=== PATIENT | female | born 1985 | race Caucasian/White ===

== ENCOUNTER 2023-08-13 20:07 | Outpatient (REF) | payer OTHER, SELFPAY ==
[2023-08-17 17:11] LABS: Age Gdln ACOG Testing Note (.); HPV Aptima Negative (Negative); IGP, Aptima HPV, rfx 16/18,45 Note (.)
== END 2023-08-13 20:08 | disposition home or self-care (01) ==
LOC: LAB 20:07
PROVIDERS: PCP Family Medicine; Visit Provider Obstetrics & Gynecology
DX: Z01.419 Encounter for gynecological examination (general) (routine) without abnormal findings (principal)
CPT/HCPCS: 87624; G0145

== ENCOUNTER 2025-04-14 15:14 | Outpatient (REF) | payer OTHER, SELFPAY ==
--- OUTSIDE RECORDS SUMMARY | 2025-03-31 20:58 | XMS_ITS | Continuity of Care Document ---
Author Organization [facility] Address [address] [place] [address] Phone Care Team Providers Care Patient Admitting Representative Name Role Phone NO FAMILY, PHYSICIAN Primary Care Provider Unava ilable Leonela Eason APRN Attending Provider NON STAFF Primary Care Provider Perla Tuttle PA-C Attending Provider [phone] Care Teams Patient Care Team Team Status: Active Member Role Status Dates NON STAFF Primary Care Provider Active Visit Care Team Team Status: Inactive Member Role Status Dates PHYSICIAN NO FAMILY Primary Care Provider Active Start: January 27, 2025 End: January 27, 2025 Leonela Eason APRN Attending Provider Active Start: January 27, 2025 End: January 27, 2025 Visit Care Team Team Status: Inactive Member Role Status Dates Leonela Easno APRN Attending Provider Active Start: January 27, 2025 End: January 27, 2025 NON STAFF Primary Care Provider Active Start: January 27, 2025 End: January 27, 2025 Visit Care Team Team Status: Inactive Member Role Status Dates NON STAFF Primary Care Provider Active Start: March 31, 2025 End: March 31, 2025 Perla Fisher PA-C Attending Provider Active St art: March 31, 2025 End: March 31, 2025 Visit Care Team Team Status: Inactive Member Role Status Dates NON STAFF Primary Care Provider Active Start: March 31, 2025 End: March 31, 2025 Perla Fisher PA-C Attending Provider Active St art: March 31, 2025 End: March 31, 2025 Chief Complaint and Reason for Visit Chief Complaint Admit Date Frequency to urinate January 27, 2025 5: 56pm R30.0 January 27, 2025 5:5 9pm RIGHT FOOT PAIN March 31, 2025 11:46 am S99.921A March 31, 2025 11:59 am Reason for Visit Admit Date UTI (urinary tract infection) December 5:56pm Right foot injury March 31, 2025 11:46 am Right foot strain March 31, 2025 11:46 am Allergies, Adverse Reactions, Alerts Allergen Type Severity Reaction Last Updated Verified Status nickel Adverse Reaction Unknown Rash March 31, 2025 11:51am Yes Active Social History Smoking Status Status Start Date End Date Date of Observa tion Never smoked tobacco (finding) May 01, 2023 1:52pm Observation Status Observation Response Date of Response Legal Sex Female (finding) Sex Assigned At Female 1985 Family History Relationship Condition Age at Onset Recorded Date/T giovanna mother Hypercholesterolemia Unknown father Diabetes mellitus Unknown aunt Hyperthyroidism Unknown father Diabetes mellitus Unknown grandparent Hyperthyroidism Unknown grandparent Thyroid nodule Unknown mother Hypertension Unknown Problems Active Problems Medical Problem Onset Date Status UTI (urinary tract infection) Unknown Ac tive Dyspepsia and disorder of function of stomach Un known Active Shortness of breath Unknown Active Cough Unknown Active Diarrhea Unknown Active GERD (gastroesophageal reflux disease) Unknown Active Abdominal pain Unknown Active Pneumonia Unknown Active Right foot injury Unknown Active Right foot strain Unknown Active Medications Medication Status Dose Units Route Directions Qty Days St art Date Stop Date End Date Instructions Adherence Dicyclomine 20 mg tablet Discont inued 1 TAB PO Daily December 03, 2017 1:00am 2022 10:04 am Pantoprazol e 40 mg tablet,marcelino yed release (DR/EC) Discont inued 1 TAB PO Daily December 03, 2017 1:00am 2022 10:04 am Fluticasone Propionate (Flonase Allergy Relief) 50 mcg/actuati on [place] Discont inued 1 SPRAY INTRAN ELVA Daily December 03, 2017 1:00am 2022 10:04 am Ondansetron 4 mg tablet,disi ntegrating Discont inued MG PO 2024 1:00am December 29, 2024 6:54p m Vortioxetin e (Trintellix ) 20 mg tablet Discont inued MG PO 2024 1:00am January 27, 2025 6:00p m Lamotrigine 100 mg tablet Discont inued MG PO 2024 1:00am December 29, 2024 6:53p m Azithromyci n 250 mg tablet Discont inued 0 PO .COMPLEX 6 2024 1:00am December 29, 2024 6:53p m For 250 mg dose pack: take 500 mg today (day 1), then 250 mg for 4 days (days 2-5) PO Albuterol Sulfate 90 mcg/actuati on HFA aerosol inhaler Discont inued 2 INH INHALA TION EVERY 4-6 HOURS as needed for shortness of breath or wheezing 6.7 7 2024 1:00am March 31, 2025 11:52 am Methylpredn isolone (Medrol (Parrish)) 4 mg tablets,dos e pack Discont inued 0 PO per package directions 21 2024 1:00am December 29, 2024 6:53p m PO PER PKG DIR Cefdinir 300 mg capsule Discont inued 300 MG PO Every 12 hours 20 10 2024 1:00am December 29, 2024 6:53p m Cephalexin 500 mg capsule Discont inued 500 MG PO Twice daily 14 7 2024 1:00am December 29, 2024 6:53p m Lamotrigine 150 mg tablet Discont inued 150 MG PO Daily December 29, 2024 12:00a m March 31, 2025 11:52 am Ciprofloxac in Hcl 500 mg tablet Discont inued 500 MG PO Twice daily 10 5 December 29, 2024 12:00a m January 27, 2025 6:00p m Prednisone 20 mg tablet Active 20 MG PO Twice daily 10 5 March 31, 2025 12:00a m Unknown Vortioxetin e (Trintellix ) 10 mg tablet Active MG PO January 27, 2025 12:00a m Unknown Cephalexin 500 mg capsule Discont inued 500 MG PO Three times daily 21 7 January 27, 2025 12:00a m March 31, 2025 11:52 am Procedures Procedure Date Performed Status Urine Culture January 27, 2025 completed XR foot RT min 3V* March 31, 2025 12:03pm comple hung Relevant Diagnostic Tests and/or Laboratory Data Laboratory Results Test Collection Date/Time Result Date/Time Result Interpretation Reference Range Result Comment Performing Site Urine Color January 27, 2025 6:07pm January 27, 2025 6:16pm yellow Urine Appearance January 27, 2025 6:07pm January 27, 2025 6:16pm cloudy Urine Specific [place] January 27, 2025 6:07pm January 27, 2025 6:16pm 1.025 Urine pH January 27, 2025 6:07pm January 27, 2025 6:16pm 7.0 Urine Leukocyte Esterase January 27, 2025 6:07pm January 27, 2025 6:16pm large Urine Nitrite January 27, 2025 6:07pm January 27, 2025 6:16pm Negative Urine Protein January 27, 2025 6:07pm January 27, 2025 6:16pm 100 Urine Glucose (UA) January 27, 2025 6:07pm January 27, 2025 6:16pm negative Urine Ketones January 27, 2025 6:07pm January 27, 2025 6:16pm negative Urine Urobilinoge n January 27, 2025 6:07pm January 27, 2025 6:16pm 0.2 Urine Bilirubin January 27, 2025 6:07pm January 27, 2025 6:16pm negative Urine Occult Blood January 27, 2025 6:07pm January 27, 2025 6:16pm small Microbiology Results Procedure Source Result Collection Date/Time Result Date/Time Result Comment Performing Site Urine Culture Urine Escherichia coli January 27, 2025 5:59pm January 29, 2025 8:27am [facility] [id number] [address] [place] [address] Diagnostic Imaging Reports Author Ji Snow [facility] Report Date/Time March 31, 2025 1:31p m [facility] Main [address] [address] XRay Report Signed Patient: Sahara Thao MR#: [id number] : 1985 Acct:[id number] Age/Sex: 40 / F ADM Date: 5 Loc: [id number] Room: Type: [facility] Attending Dr: Perla Fisher PA-C Copies to: ALIYAH Velasco~ Ordering Provider: ALIYAH Velasco Date of Service: 03/31/25 XR/XR foot RT min 3V*: S99.921A - Unspecified injury of right foot, initial enco... RIGHT FOOT - 3 views CLINICAL HISTORY: Fall 1 month ago. Now with pain. COMPARISON: None FINDINGS: Soft tissue swelling. No acute bony process. Joint spaces appear maintained. No bony erosions. XR/XR foot RT min 3V* IMPRESSION: SOFT TISSUE SWELLING. NO ACUTE BONY PROCESS. Impression dictated by: Ji Snow Jr., D.O. 03/31/2025 1:31 PM Dictation Location: [place] [address] Transcribed By: [facility] 03/31/25 1331 Dictated By: Ji Snow Jr, DO 03/31/25 1230 Signed By: <Electronically signed by Ji Snow Jr, DO in OV> 03/31/25 1331 Vital Signs Vital Reading Result Reference Range Collection Date/Time Height 64 [in_i] January 27 6:02pm Weight 101.60 kg January 27 6:02pm Body Temperature 98 [degF] 97.6-99.0 January 27, 2025 6:02pm Heart Rate 87 /min 60-100 January 27 6:02pm Respiratory rate 18 /min 12-24 January 27, 2025 6:02pm Oxygen saturation by Pulse oximetry 98 % 95-100 January 27, 2025 6:0 2pm BP Systolic 111 mm[Hg] 100-140 January 27 6:02pm BP Diastolic 75 mm[Hg] 60-100 January 27 6:02pm BMI (Body Mass Index) 38.4 kg/m2 January 27, 2025 6:02pm Height 64 [in_i] March 31, 2025 11:52am Weight 104.32 kg March 31, 2025 11:52am Body Temperature 97.7 [degF] 97.6-99.0 March 31 11:52am Heart Rate 85 /min 60-100 March 31, 2025 11:52am Respiratory rate 16 /min 12-March 31 11:52am Oxygen saturation by Pulse oximetry 98 % 95-100 March 31, 2025 11:52 am BP Systolic 112 mm[Hg] 100-140 March 31, 2025 11:52am BP Diastolic 78 mm[Hg] 60-100 March 31, 2025 11:52am BMI (Body Mass Index) 39.4 kg/m2 March 312024 11:52am Advance Directives Advance Directive Response Recorded Date/ Time Advance Directives No October 12, 2017 12:53pm Insurance Providers Guarantor Sahara Thao Address [address] [place] [id number] Contact Info. Home Phone: Payer Policy Id Subscriber's Name Subscriber Id Effe ctive Date Expiration Date [facility] [id number] Sahara Thao [id number] [facility] [id number] Ji Thao [id number] Encounters Encounter Location(s) Arrival/Admit Date Discharge/Depart Date Provider(s) Departed Physician/Prov ider Office Visit -[facility] [place] January 27, 2025 5:56pm January 27, 2025 6:27pm Zuleyma Mike APRN Departed Referred -Lab [facility] January 27, 2025 5:59pm January 27, 2025 6:00pm Zuleyma Mike APRN Departed Physician/Prov ider Office Visit -[facility] [place] March 31, 2025 11:46am March 31, 2025 1:46pm ALIYAH Velasco Departed Clinical -[facility] March 31, 2025 11:59am March 31, 2025 12:00pm ALIYAH Velasco Recent Diagnosis Onset Date Admit Date UTI (urinary tract infection) Unknown Ap 2024 5:56pm Right foot injury Unknown March 31, 2025 11:46am Right foot strain Unknown March 31, 2025 11:46am Assessments Diagnosis Onset Date Resolution Status Admit Date UTI (urinary tract infection) acute January 27, 2025 5:56pm Right foot injury acute March 11:46am Right foot strain acute March 11:46am Plan of Treatment Author Perla Fisher [facility] Authored March 31, 2025 1:47p m Rx steroid as directed for p ain. No nsaids while on steroid. Otc tylenol is ok to take prn for additional pain relief. Ice and heat alternating as directed. RICE therapy. Pt declined walking boot or crutches. No heavy lifting or strenuous exercise. Stretching exercises as discussed. Pt to f/u as needed for any persistent or worsening symptoms. Pt understood and agreed to treatment plan. FINAL READ shows no acute bony abnormality. Soft tissue swelling noted. Results were reviewed and discussed with pt in office at time of visit and they verbally understood these findings. Author Leonela Eason [facility] Authored January 27, 2025 6:4 2pm Last UTI culture positive fo r greater than 100,000 E. coli, was sensitive to all antibiotics other than Bactrim. Last UTI was about 1 month ago and was on Cipro. UA with large leukocytes, small blood. Will treat with keflex. Push fluids. We will culture urine and notify of results in 2 to 4 days. Advised to follow-up with PCP if symptoms or not gradually improving over the next 3 to 4 days. Patient verbalized understanding of treatment plan. Future Tests Future scheduled test information is unavailable Pending Tests Pending diagnostic test information is unavailable Future Visits Future appointment information is unavailable Referrals to Other Providers Referral information is unavailable Future Procedures Future procedure information is unavailable Future Medications Future medication information is unavailable Patient Instructions Patient instructions are unavailable
--- OUTSIDE RECORDS SUMMARY | 2025-04-14 15:18 | XMS_ITS | Clinical Summary ---
Author Organization [facility] Address [address] [place] [address] Care Team Providers Care Drawer In Hand Name Role Phone Jabier Vicente Allergies Active Allergy Reactions Criticality Noted Date Comments Nickel Rash 05/19/2021 sensitivity Medications bupropion HCl (WELLBUTRIN SR ORAL) Take 300 mg by mouth. Active letrozole (FEMARA) 2.5 mg tablet Take 2 tablets by mouth as directed for 5 days. Start on cycle day 3 (where cycle day 1 is the first day of full flow). Continue until day 7 10 tablet 5 06/30/2021 Active Social History Tobacco Use Types Packs/Day Years Used Date Smoking Tobacco: Never Smokeless Tobacco: Never Alcohol Use Standard Drinks/Week Comments Yes 0 (1 standard drink = 0.6 oz pur e alcohol) socially Area Deprivation Index Answer Date Naveed rded National Score (1-100), lower number is lower ri sk Not on file 05/19/2021 State Score (1-10), lower number is lower risk N ot on file 05/19/2021 Data from: https://www.neighborhoodatlas.medicine.[facility].edu/. Last address used for calculation Not on file 05/19/2021 Comments No Sex and Gender Information Value Date Recorded Sex Assigned at Female 06/15/2021 6:08 AM EDT Legal Sex Female 11:07 AM EDT Gender Identity Female 06/15/2021 6:08 AM EDT Sexual Orientation Straight 06/15/2021 6: 08 AM EDT Last Filed Vital Signs Vital Sign Reading Time Taken Comments Blood Pressure 117/78 06/15/2021 8:22 AM EDT Pulse 81 06/15/2021 8:22 AM EDT Temperature - - Respiratory Rate - - Oxygen Saturation 99% 06/15/2021 8:22 AM EDT Inhaled Oxygen Concentration - - Weight 93.9 kg (207 lb) 06/30/2021 10:35 AM EDT Height 162.6 cm (5' 4 ) 06/30/2021 10:35 AM EDT Body Mass Index 35.53 06/30/2021 10:35 AM EDT Plan of Treatment Health Maintenance Due Date Last Done Comments DTaP,Tdap,Td Vaccine (6 - Tdap) 02/05/1998 02/04/1998, 04/15/1991, 09/13/1987, Additional history exists Anxiety Screening 2004 Depression Screening 2004 HIV Screening 2004 Hepatitis C Screening 2004 Cervical Cancer Screening 2007 Covid-19 Vaccine (2023-2 5 season) 2024 Influenza Vaccine (#1) 2025 Hepatitis B Vaccine Completed 05/13/2004, 11/20/2003, 07/30/[address] [place] [address] PPO [employer]UST Care Teams Drawer In Hand Relationship Specialty Start Date End Date Jabier Vicente [address] [facility] [place] [phone] Referring Toolroom Helper 04/01/21
--- OUTSIDE RECORDS SUMMARY | 2025-04-14 15:18 | XMS_ITS | Encounter Summary ---
Author Organization [facility] Address [address] [place] [address] Care Team Providers Care Durable Medical Equipment Technician Name Role Phone Jabier [phone] Source Comments In the event this information is protected by the Federal Confidentiality of Alcohol and Drug AbusePatient Records regulations: The Federal rules restrict any use of the information to criminally investigate or prosecute any alcohol or drug abuse patient.[facility] Encounter Details Date Type Department Care Team (Late st Contact Info) Description 11/17/2021 Get Medical Advice Reproductive Endocrinology Infertility [address] [phone] Nico Martínez MD question Social History Tobacco Use Types Packs/Day Years [...] N ot on file 05/19/2021 Data from: https://www.neighborhoodatlas.medicine.[facility].edu/. Last address used for calculation Not on file 05/19/2021 Comments No Sex and Gender Information Value Date Recorded Sex Assigned at Female 06/15/2021 6:08 AM EDT Legal Sex Female 11:07 AM EDT Gender Identity Female 06/15/2021 6:08 AM EDT Sexual Orientation Straight 06/15/2021 6: 08 AM EDT documented as of this encounter Plan of Treatment Not on file documented as of this encounter Visit Diagnoses Not on filedocumented in this encounter Care Teams Durable Medical Equipment Technician Relationship Specialty Start Date End Date Jabier Vicente [address] [place] [address] Referring Machine Maintenance Servicer 04/01/21 documented as of this encounter
--- OUTSIDE RECORDS SUMMARY | 2025-04-14 15:18 | XMS_ITS | Patient Health Record ---
Author Organization [facility] Address [address] [place] [address] Care Team Providers Care Shift Mechanic Name Role Phone Emilia Tavares Primary Care Provider Glennaalmita dariana alvina Karla Unavailable Allergies No Known Allergies Results Component Value Reference Range Notes Urinalysis (IH) Reviewed date:07/05/2024 03:30:28 PM Interpretation:Abnormal Performing Lab: Notes/Report: Abnormal Blood Non-Hemolyzed 10 negative - ca. 250 Er y/ml Urobili norm normal - 12 mg/dL Bili neg negative - large Protein 30 negative - 500 mg/dL Nitrites neg negative - positive Ketone neg negative - large mg/dL Ascorbic Acid ++ trace - large Glucose neg negative - > 1000 mg/dL pH 7 5.0 - 9.0 Spec. Gr. 1.010 1.000 - 1.030 LEUK 500 negative - ca. 500 Darrion/ml Reason For Referral No Information Medications Medication SIG (Take, Route, Frequency, Duration) Notes Start Date End Date Status hydrOXYzine Pamoate 25 MG TAKE 1 CAPSULE (25 MG) BY MOUTH EVERY 8 (EIGHT) HOURS IF NEEDED FOR ANXIETY Oral for 10 Days Active lamoTRIgine 100 MG Oral for 90 Days Active Trintellix 20 MG Oral for 30 Days Active Social History Tobacco Use: Social History Observation Description Date Details (start date - stop date) Never Smoker NA - NA Tobacco Control (Standard) Question Answer Notes Tobacco use: Nonsmoker Problems Problem Type SNOMED Code ICD Code Onset Dates Problem Status W/U Status Risk Notes Problem Anxiety (65931903) Anxiety (F41.9) Active confirmed Problem Depression (557165168) Depression (F32.9) Active confirmed Problem 403675241 Obesity (BMI 30-39.9) (E66.9) Active confirmed Vital Signs Temperature 98.4 degrees Fahrenheit 07/05/2024 Respiratory Rate 16 /min 07/05/2024 Blood pressure diastolic 78 mm Hg 07/05/2024 Height 64 in 07/05/2024 Blood pressure systolic 120 mm Hg 07/05/2024 Weight 221 lbs 07/05/2024 BMI 37.93 kg/m2 07/05/2024 Encounters Encounter Location Date Provider Diagnosis [id number] [facility] [address] [place] [address] 07/05/2024 Karla Courtneyalvina Acute cystitis with hematuria N30.01 and Obesity (BMI 30-39.9) E66.9 Assessments Encounter Date Diagnosis (ICD Code) Assessment Notes Treatment Notes Treatment Clinical Notes Section Notes 07/05/2024 Obesity (BMI 30-39.9) (ICD-10 - E66.9) Continue healthy eating and exercise. [facility] via a telehealth visit at [email or web address] to help with dietary changes to lower BMI. 07/05/2024 Acute cystitis with hematuria (ICD-10 - N30.01) Urinary Tract Infection (UTI) in Women: Care Instructions material was published, Female Urinary Tract: Anatomy Sketch material was published, Diet for a Healthy Bladder: Care Instructions material was published Follow up in the clinic or with PCP in 2-3 days if no improvement or worsening of symptoms and will send for culture as [facility] is not picking up this weekend 07/05/2024 Other Sulfamethoxazol e/Tr imethoprim Oral Tablet (SULFAMETHOXAZOLE/T RIMETHOPRIM- ORAL) material was published, Phenazopyridine Oral Tablet (PHENAZOPYRIDINE - ORAL) material was published Plan Of Treatment No Information Insurance Providers Payer Name Payer Address Payer Phone Subscriber Number Group Number Insured Name Patient Relationship to Insured Coverage Start Date Coverage End Date [facility] [address] [place] [phone] [id number] Sahara Rene Self - patient is the insured [employer] [address] [place] [phone] Sahara Rene Self - patient is the insured Medical (General) History Medical History History ICD Code Depression F32.9 Anxiety F41.9 Surgical History Surgery Date(Month/Year) colonoscopy Hospitalization History Reason Date(Month/Year) childbirth dehydration, tachycardia 2022
--- OUTSIDE RECORDS SUMMARY | 2025-04-14 15:18 | XMS_ITS | Encounter Summary ---
Author Organization [facility] Address [address] [place] [address] Care Team Providers Care Operater Name Role Phone Jabier [phone] Source Comments In the event this information is protected by the Federal Confidentiality of Alcohol and Drug AbusePatient Records regulations: The Federal rules restrict any use of the information to criminally investigate or prosecute any alcohol or drug abuse patient.[facility] Encounter Details Date Type Department Care Team (Latest Contact Info) Description 11/03/2021 Get Medical Advice Reproductive Endocrinology Infertility [address] [phone] Nico Martínez MD test positive! Social History Tobacco Use Types Packs/Day Years [...] N ot on file 05/19/2021 Data from: https://www.neighborhoodatlas.medicine.[facility].edu/. Last address used for calculation Not on file 05/19/2021 Comments No Sex and Gender Information Value Date Recorded Sex Assigned at Female 06/15/2021 6:08 AM EDT Legal Sex Female 11:07 AM EDT Gender Identity Female 06/15/2021 6:08 AM EDT Sexual Orientation Straight 06/15/2021 6: 08 AM EDT documented as of this encounter Miscellaneous Notes * Telephone Encounter - Alondra Rodriguez RN - 11/03/2021 11:09 AM EST See phone encounter Alondra Rodriguez RN November 03, 2021 11:09 AM documented in this encounter Plan of Treatment Not on file documented as of this encounter Visit Diagnoses Not on filedocumented in this encounter Care Teams Operater Relationship Specialty Start Date End Date Jabier Vicente [address] [place] [address] Referring Traffic Control Signaler 04/01/21 documented as of this encounter
--- OUTSIDE RECORDS SUMMARY | 2025-04-14 15:18 | XMS_ITS | Encounter Summary ---
Author Organization [facility] Address [address] [place] [address] Care Team Providers Care Supervisor Molding Name Role Phone Jabier Vicente Source Comments In the event this information is protected by the Federal Confidentiality of Alcohol and Drug AbusePatient Records regulations: The Federal rules restrict any use of the information to criminally investigate or prosecute any alcohol or drug abuse patient.[facility] Encounter Details Date Type Department Care Team (Late st Contact Info) Description 11/03/2021 Patient Msg Reproductive Endocrinology Infertility [id number] [place] [address] Leonela Rice APRN.DRILL PRESS OPERATOR HELPER [phone] [place] [address] Next steps Social History Tobacco Use Types Packs/Day Years [...] N ot on file 05/19/2021 Data from: https://www.neighborhoodatlas.medicine.[facility].edu/. Last address used for calculation Not on [...] on filedocumented in this encounter Care Teams Supervisor Molding Relationship Specialty Start Date End Date Jabier Vicente [address] [place] [address] Referring Dental Technician 04/01/21 documented as of this encounter
--- OUTSIDE RECORDS SUMMARY | 2025-04-14 15:18 | XMS_ITS | Encounter Summary ---
Author Organization [facility] Address [address] [place] [address] Care Team Providers Care Quality Control Microbiologist Name Role Phone Jabier [phone] Source Comments In the event this information is protected by the Federal Confidentiality of Alcohol and Drug AbusePatient Records regulations: The Federal rules restrict any use of the information to criminally investigate or prosecute any alcohol or drug abuse patient.[facility] Encounter Details Date Type Department Care Team (Latest Contact Info) Description 11/09/2021 Get Medical Advice Reproductive Endocrinology Infertility [address] [phone] Nico Martínez MD Have you received test results Social History Tobacco Use Types Packs/Day Years [...] N ot on file 05/19/2021 Data from: https://www.neighborhoodatlas.medicine.[facility].edu/. Last address used for calculation Not on file 05/19/2021 Comments No Sex and Gender Information Value Date Recorded Sex Assigned at Female 06/15/2021 6:08 AM EDT Legal Sex Female 11:07 AM EDT Gender Identity Female 06/15/2021 6:08 AM EDT Sexual Orientation Straight 06/15/2021 6: 08 AM EDT documented as of this encounter Miscellaneous Notes * Telephone Encounter - Alondra Rodriguez RN - 11/09/2021 4:43 PM EST See phone encounter Alondra Rodriguez RN November 09, 2021 4:43 PM documented in this encounter Plan of Treatment Not on file documented as of this encounter Visit Diagnoses Not on filedocumented in this encounter Care Teams Quality Control Microbiologist Relationship Specialty Start Date End Date Jabier Vicente [address] [place] [address] Referring Supervisor Rubber Covering 04/01/21 documented as of this encounter
--- OUTSIDE RECORDS SUMMARY | 2025-04-14 15:18 | XMS_ITS | Clinical Summary ---
Author Organization [employer] [facility] Address [id number] [place] [address] Care Team Providers Care Security System Administrator Name Role Phone Anusha Emilia Zuleyma ROOT Primary Care Provider [phone] Allergies Active Allergy Reactions Criticality Noted Date Comments Nickel 01/24/2022 Medications ondansetron ODT (ZOFRAN ODT) 4 mg disintegrating tablet Dissolve 1 tablet (4 mg total) on tongue every 8 (eight) hours as needed for nausea or vomiting. 20 tablet 10/02/19 Active Additional Information Patient not taking.Reported on 01/22/2025 TRINTELLIX 10 mg tablet Take 1 tablet (10 mg total) by mouth. 12/19/19 Active lamoTRIgine (LaMICtal) 150 mg tablet Take 1 tablet (150 mg total) by mouth in the morning. 12/16/19 25 Active Active Problems Problem Noted Date Diagnosed Date Stress incontinence of urine 01/22/2025 Overview (01/22/2025): ====01/22/25====Stress incontinence and occasional incontinence without sensation. Kegels ineffective. PVR 0. Recent CT report mentioned pelvic floor weakness. We discussed cystoscopy/urodynamics. We will start with cystoscopy first Assessment & Plan (01/22/2025 1:31 PM EDT): Due to her recurrent infections, we will start by checking a cystoscopy 1st. We discussed that urodynamics may be needed as well. Recurrent UTI 01/22/2025 Overview (01/22/2025): ====01/22/25==== recurrent UTI symptoms over the past year. Recent CT showed that the kidneys were unremarkable. She agrees to cystoscopy/ [facility] instillation. She will look in to cranberry/ D mannose supplements. We discussed postcoital antibiotics. She will let me know if interested Assessment & Plan (01/22/2025 1:32 PM EDT): I explained cystoscopy to her in detail. She agrees to proceed under local anesthesia. Nausea, vomiting, and diarrhea 10/02/2024 MCI (mild cognitive impairment) 10/02/2024 Overview (10/02/2024): Symptoms of Loss of Train of thought, difficulty with word finding reviewed with patient and reassurance given. Reviewed possible etiologies, including but not limited to medications, medical diseases, allergens, neurological causes. Recommend referral to Neurology for evaluation and management. All of patient's questions were answered and she expressed understanding. will continue to follow. 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 Memory loss 03/15/2023 Persistent depressive disorder 03/15/2023 Encounters Date Type Department Care Team Description 01/22/2025 1:00 PM EDT Office Visit [facility] [address] [place] [address] Tonya Vickers I, PA Stress incontinence of urine (Primary Dx); Recurrent UTI 01/22/2025 Telephone [facility] [address] [place] [address] Tonya Vickers PA from Last 3 Months Family History Medical History Relation Name Comments Diabetes Father Type 2 Heart disease Maternal Grandfather Stroke Maternal Grandfather Arthritis Maternal Grandmother Diabetes Maternal Grandmother Goiter Maternal Grandmother Heart disease Maternal Grandmother Hypothyroidism Maternal Grandmother Anemia Mother Hyperlipidemia Mother Alzheimer's disease Paternal Grandfather Heart disease Paternal Grandfather Stroke Paternal Grandfather Diabetes Paternal Grandmother Heart disease Paternal Grandmother Hyperlipidemia Paternal Grandmother Hypertension Paternal Grandmother Hypothyroidism Paternal Grandmother Miscarriages / Stillbirths Paternal Grandmother Parkinsonism Paternal Grandmother Relation Name Status Comments Father Maternal Grandfather Maternal Grandmother Mother Paternal Grandfather Paternal Grandmother Social History Tobacco Use Types Packs/Day Years Used Date Smoking Tobacco: Never Smokeless Tobacco: Never Tobacco Cessation:Counseling Given: Not Answered Alcohol Use Standard Drinks/Week Comments Yes 0 (1 standard drink = 0.6 oz pure alcohol) states they very rarely drink alcohol [facility] Utilities Answer Date Recorded In the past 12 months has [employer], gas, oil, or water [employer] threatened to shut off services in your home? No 10/02/2024 Social Connection and Isolat ion Panel [NHANES] Answer Date Recorded In a typical week, how many times do you talk on the phone with family, friends, or neighbors? More than three times a week 10/02/2024 How often do you get togethe r with friends or relatives? More than three times a week 10/02/2024 How often do you attend chur or hindu services? 1 to 4 times per year 10/02/2024 Do you belong to any clubs o r organizations such as orthodoxy groups, unions, fraternal or athletic groups, or school groups? No 10/02/2024 How often do you attend meet ings of the clubs or organizations you belong to? Never 10/02/2024 Are you , , di vorced, , never , or living with a partner? 10/02/2024 AUDIT-C Answer Date Recorded Q1: How often do you have a drink containing alcohol? Never 10/02/2024 Q2: How many drinks containi ng alcohol do you have on a typical day when you are drinking? Patient does not drink Q3: How often do you have si x or more drinks on one occasion? Never 10/02/2024 Overall Financial Resource Strain (CARDIA) Answe r Date Recorded How hard is it for you to pa y for the very basics like food, housing, medical care, and heating? Not hard at all 10/02/2024 PHQ-2 Answer Date Recorded Total Score 0 10/02/2024 Exercise Vital Sign Answer Date Recorde d On average, how many days pe r week do you engage in moderate to strenuous exercise (like a brisk walk)? 1 day 10/02/2024 On average, how many minutes do you engage in exercise at this level? 30 min 10/02/2024 PRAPARE - Transportation Answer Date Re corded In the past 12 months, has l ack of transportation kept you from medical appointments or from getting medications? No 11/2024 In the past 12 months, has l ack of transportation kept you from meetings, work, or from getting things needed for daily living? No 10/02/2024 Housing Instability Answer Date Recorde d Are you worried or concerned that in the next two months you may not have stable housing that you own, rent or stay in as a part of a household? No 10/02/2024 Childcare Answer Date Recorded Do problems getting child ca re make it difficult for you to work or study? No 10/02/2024 Employment Answer Date Recorded Do you need help finding a [facility] career center and/or a training program? No 10/02/2024 Hunger Screening Answer Date Recorded Within the past 12 months we worried whether our food would run out before we got money to buy more. Never True 01/22/2025 Within the past 12 months th e food we bought just didn't last and we didn't have money to get more. Never True 01/22/2025 Purpose - Life Answer Date Recorded I have a purpose and direction in my life. Stron gly Agree 10/02/2024 Comments No Sex and Gender Information Value Date Recorded Sex Assigned at Not on file Legal Sex Female 12:06 PM EDT Gender Identity Not on file Sexual Orientation Not on file Last Filed Vital Signs Vital Sign Reading Time Taken Comments Blood Pressure 137/89 01/22/2025 12:45 PM EDT Pulse 98 01/22/2025 12:45 PM EDT Temperature 36.8 C (98.2 F) 10/02/2024 11:56 AM EST Respiratory Rate 17 10/02/2024 1:29 PM EST Oxygen Saturation 93% 10/02/2024 3:44 PM EST Inhaled Oxygen Concentration - - Weight 101.6 kg (224 lb) 01/22/2025 12:45 PM EDT Height 162.6 cm (5' 4 ) 01/22/2025 12:45 PM EDT Body Mass Index 38.45 01/22/2025 12:45 PM EDT Plan of Treatment Upcoming Encounters Date Type Department Care Team (Latest Contact Info) Description 05/08/2025 4:10 PM EDT Support Visit [facility] - Pre Admit [address] [place] [address] 05/11/2025 10:00 AM EDT Hospital Encounter [facility] - Surgery [address] [place] [address] Delfino Schmid MD [address] [place] [address] 05/11/2025 10:00 AM EDT - 05/11/2025 10:30 AM EDT Surgery [facility] - Surgery [address] [place] [address] Delfino Schmid MD [address] [place] [address] CYSTOSCOPY WITH [facility] BLADDER SOLUTIO [13751 (CPT )] Scheduled Procedures Name Priority Associated Diagnoses Date/Ti me CYSTOSCOPY Recurrent UTI Stress incontinence of urine 05/11/2025 10:00 AM EDT Health Maintenance Due Date Last Done Comments DTaP,Tdap and Td Vaccines (6 - Tdap) 02/05/1998 02/04/1998, 04/15/1991, 09/13/1987, Additional history exists Adult BMI Follow Up Plan 2004 Pap Smear 2007 Influenza Vaccine 06/01/2025 Depression Screening 10/02/2025 10/02/2024 Adult BMI Screening 01/22/2026 01/22/2025 Tobacco Screening 01/22/2026 01/22/2025 Goals Goal Patient Goal Type Associated Problems Recent Progress Patient-Stated? Author Autogenera hung Goal Care Plan Autogenerated Problem No Smiley, [employer] Not on file Procedures Procedure Name Priority Date/Time Associated Diagnosis Comments MEASURE POST VOID RESIDUAL Routine 01/22/2025 12:57 PM EDT Stress incontinence of urine POCT URINALYSIS AUTO, W/O MICROSCOPY Routine 01/22/2025 12:56 PM EDT Stress incontinence of urine from Last 3 Months Results * Measure post void residual (01/22/2025 12:57 PM EDT) Volume 0 MANUALLY TRANSCRIBED RESULTS Tonya LY NURSING ASSESSMENTS Final R esult Performing Organization Address City/[facility] Co de Phone Number MANUALLY TRANSCRIBED RESULTS * POCT Urinalysis Auto, W/O Microscopy (01/22/2025 12:56 PM EDT) External Poct Urine Glucose Negative MANUALLY TRANSCRIBED RESULTS External Poct Urine Ketones Negative MANUALLY TRANSCRIBED RESULTS External Poct Urine Blood Negative MANUALLY TRANSCRIBED RESULTS External Poct Urine Ph 7.0 MANUALLY TRANSCRIBED RESULTS External Poct Urine Protein Negative MANUALLY TRANSCRIBED RESULTS External Poct Urine Nitrite Negative MANUALLY TRANSCRIBED RESULTS External Poct Urine Leukocyte Esterase Trace MANUALLY TRANSCRIBED RESULTS Urine 01/22/2025 12:5 6 PM EDT Tonya LY POINT OF CARE TEST ORDERABL ES Final Result Performing Organization Address [facility] Co de Phone Number MANUALLY TRANSCRIBED RESULTS from Last 3 Months Additional Health Concerns Active Problems Noted Date Diagnosed Date Autogenerated Problem 03/19/2025 Insurance [employer] Member Subscriber Plan / Payer (Ef fective 2017-Present) Name:Sahara Thao Relation to Subscriber:Self Name:Sahara Thao Payer ID:Not on file Type:Not on file Address: [facility] [address] [id number] [employer] Advance Directives * Full Code (Latest Code Status on File) Date Activated Date Inactivated Comments 10/02/2024 4:13 AM 10/02/2024 7:03 PM * Full Code Date Activated Date Inactivated Comments 09/23/2023 9:03 AM 09/23/2023 5:57 PM Care Teams Security System Administrator Relationship Specialty Start Date End Date Emilia Tavares DO [address] [place] [address] PCP - General 01/17/19
--- OUTSIDE RECORDS SUMMARY | 2025-04-14 15:18 | XMS_ITS | Encounter Summary ---
Author Organization [facility] Address [address] [place] [address] Care Team Providers Care Supervisor Name Role Phone Jabier [phone] Source Comments In the event this information is protected by the Federal Confidentiality of Alcohol and Drug AbusePatient Records regulations: The Federal rules restrict any use of the information to criminally investigate or prosecute any alcohol or drug abuse patient.[facility] Encounter Details Date Type Department Care Team (Latest Contact Info) Description 11/10/2021 Get Medical Advice Reproductive Endocrinology Infertility [address] [phone] Nico Martínez MD Ultrasound reschedule Social History Tobacco Use Types Packs/Day Years [...] N ot on file 05/19/2021 Data from: https://www.neighborhoodatlas.medicine.[facility].edu/. Last address used for calculation Not on file 05/19/2021 Comments No Sex and Gender Information Value Date Recorded Sex Assigned at Female 06/15/2021 6:08 AM EDT Legal Sex Female 11:07 AM EDT Gender Identity Female 06/15/2021 6:08 AM EDT Sexual Orientation Straight 06/15/2021 6: 08 AM EDT documented as of this encounter Miscellaneous Notes * Telephone Encounter - Alondra Rodriguez RN - 11/10/2021 2:20 PM EST Called the patient there was no answer Left a message to call the office Alondra Rodriguez RN November 10, 2021 2:23 PM documented in this encounter Plan of Treatment Not on file documented as of this encounter Visit Diagnoses Not on filedocumented in this encounter Care Teams Supervisor Relationship Specialty Start Date End Date Jabier Vicente [address] [place] [address] Referring Canopy Inspector 04/01/21 documented as of this encounter
--- OUTSIDE RECORDS SUMMARY | 2025-04-14 15:18 | XMS_ITS | Encounter Summary ---
Author Organization [facility] Address [address] [place] [address] Care Team Providers Care Senior Control Systems Engineer Name Role Phone Jabier [phone] Source Comments In the event this information is protected by the Federal Confidentiality of Alcohol and Drug AbusePatient Records regulations: The Federal rules restrict any use of the information to criminally investigate or prosecute any alcohol or drug abuse patient.[facility] Encounter Details Date Type Department Care Team (Latest Contact Info) Description 11/10/2021 Get Medical Advice Reproductive Endocrinology Infertility [address] [phone] Nico Martínez MD Medication/ supplement question Social History Tobacco Use Types Packs/Day [...] N ot on file 05/19/2021 Data from: https://www.neighborhoodatlas.medicine.[facility].edu/. Last address used for calculation Not on [...] on filedocumented in this encounter Care Teams Senior Control Systems Engineer Relationship Specialty Start Date End Date Jabier Vicente [address] [place] [address] Referring Electronic Engineering Technician 04/01/21 documented as of this encounter
--- OUTSIDE RECORDS SUMMARY | 2025-04-14 15:18 | XMS_ITS | Encounter Summary ---
Author Organization [facility] Address [address] [place] [address] Care Team Providers Care Motorboat Operator Name Role Phone Jabier Vicente Source Comments In the event this information is protected by the Federal Confidentiality of Alcohol and Drug AbusePatient Records regulations: The Federal rules restrict any use of the information to criminally investigate or prosecute any alcohol or drug abuse patient.[facility] Encounter Details Date Type Department Care Team (Late st Contact Info) Description 11/28/2021 Patient Msg Reproductive Endocrinology Infertility [address] [place] [address] Leonela Rice APRN.FARM INSTRUCTOR [address] [place] [address] Next steps Social History Tobacco Use Types [...] N ot on file 05/19/2021 Data from: https://www.neighborhoodatlas.medicine.[facility].edu/. Last address used for calculation Not on [...] on filedocumented in this encounter Care Teams Motorboat Operator Relationship Specialty Start Date End Date Jabier Vicente [address] [place] [address] Referring Felt Hanger 04/01/21 documented as of this encounter
--- OUTSIDE RECORDS SUMMARY | 2025-04-14 15:18 | XMS_ITS | Encounter Summary ---
Author Organization [facility] Address [address] [place] [address] Care Team Providers Care Php Website Developer Name Role Phone Jabier [phone] Source Comments In the event this information is protected by the Federal Confidentiality of Alcohol and Drug AbusePatient Records regulations: The Federal rules restrict any use of the information to criminally investigate or prosecute any alcohol or drug abuse patient.[facility] Encounter Details Date Type Department Care Team (Late st Contact Info) Description 11/10/2021 Patient Msg Maternal Medicine [address] [place], [place] [phone] Provider, [facility] Appointment Cancellation Request Social History Tobacco Use Types Packs/Day Years [...] on filedocumented in this encounter Care Teams Php Website Developer Relationship Specialty Start Date End Date Jabier Vicente [address] [place] [address] Referring Recorder Of Deeds 04/01/21 documented as of this encounter
--- OUTSIDE RECORDS SUMMARY | 2025-04-14 15:18 | XMS_ITS | Encounter Summary ---
Author Organization [facility] Address [facility] [place] [address] Care Team Providers Care Dye House Wheel Operator Name Role Phone Jabier [phone] Source Comments In the event this information is protected by the Federal Confidentiality of Alcohol and Drug AbusePatient Records regulations: The Federal rules restrict any use of the information to criminally investigate or prosecute any alcohol or drug abuse patient.[facility] Encounter Details Date Type Department Care Team (Late st Contact Info) Description 06/30/[address] [address] Provider, [facility] Scheduling Appointment Social History Tobacco Use Types Packs/Day Years [...] on filedocumented in this encounter Care Teams Dye House Wheel Operator Relationship Specialty Start Date End Date Jabier Vicente [address] [place] [address] Referring Baseball Hand Sewer 04/01/21 documented as of this encounter
[2025-04-16 16:09] LABS: Age Gdln ACOG Testing Note (.); IGP, Aptima HPV, rfx 16/18,45 Note (.)
== END 2025-04-14 15:15 | disposition home or self-care (01) ==
LOC: LAB 15:14
PROVIDERS: PCP Family Medicine; Visit Provider Obstetrics & Gynecology
DX: Z01.419 Encounter for gynecological examination (general) (routine) without abnormal findings (principal)
CPT/HCPCS: 88175